=== PATIENT | male | born 1960 | race Caucasian/White ===

== ENCOUNTER 2018-08-22 08:35 | Emergency (ER) | payer OTHER ==
[~2018-08-22] VITALS: Ht 177.8 cm; Wt 62.1 kg
[2018-08-22] MEDS ORDERED: CYCLOBENZAPRINE10 MG (09:12)
[2018-08-22] MEDS ORDERED: NAPROXEN500 MG (09:12)
== END 2018-08-22 14:37 | disposition designated cancer center or children's hospital (05) ==
LOC: ER 08:35 → CPU-OBS 09:16 → ER 14:37
DX: I24.9 Acute ischemic heart disease, unspecified (principal); E11.9 Type 2 diabetes mellitus without complications
CPT/HCPCS: G0378; G0379; 93005; 82805; 36600